=== PATIENT | female | born 1970 | race Caucasian/White ===

== ENCOUNTER 2019-12-19 13:21 | Emergency (ER) | payer OTHER, SELFPAY ==
[~2019-12-19] VITALS: Ht 172.7 cm; Wt 81.6 kg
[2019-12-19 13:22] VITALS: Ht 172.7 cm; Wt 81.6 kg
[2019-12-19 14:35] VITALS: BP 105/72
== END 2019-12-19 14:35 | disposition home or self-care (01) ==
LOC: ED 13:21
DX: B34.9 Viral infection, unspecified (principal); Z20.828 Contact with and (suspected) exposure to other viral communicable diseases; Z90.89 Acquired absence of other organs; Z90.49 Acquired absence of other specified parts of digestive tract; Z98.890 Other specified postprocedural states
CPT/HCPCS: U0003